=== PATIENT | female | born 1930 | race Caucasian/White ===

== ENCOUNTER 2016-03-19 12:54 | Emergency (ER) | payer OTHER ==
[~2016-03-19] VITALS: Ht 167.6 cm; Wt 80.0 kg
[~2016-03-19 12:54] MED LIST: BETAPACE; WARF2TAB PO; WARF5INJ; cozaar; synthroid; tiazac
[2016-03-19 13:14] VITALS: Ht 167.6 cm; Wt 80.0 kg
[2016-03-19] MEDS ORDERED: LORAZEPAM 2 MG/ML 1 ML VIAL IM STA (13:31)
[2016-03-19] MEDS ORDERED: HALOPERIDOL LACTATE 5 MG/ML 1 ML VIAL IM STA (13:31)
--- NOTE | 2016-03-19 13:59 | DIAGNOSTIC IMAGING REPORT ---
CHEST ONE VIEW PORTABLE CLINICAL HISTORY: Medical clearance. COMPARISON STUDY: Chest radiograph June 29, 2012. 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 Moderate cardiomegaly is similar to prior exam. There is no pneumothorax. There may be trace bilateral pleural effusions. There is pulmonary vascular congestion with possible mild pulmonary edema. There is hazy right lower lung opacity. IMPRESSION: 1. Pulmonary vascular congestion with suspected mild pulmonary edema. 2. Hazy right lower lung opacity which could reflect atelectasis or consolidation. Radiographic follow up is recommended. 3. Moderate cardiomegaly, similar to prior exam. Electronically signed by: Yevgeniy Maynard M.D. 03/19/2016 1:57 PM
[2016-03-19 14:10] LABS: MANUAL MICROSCOPIC REQUIRED? NO; REVIEW REQ? NO; URINE APPEARANCE CLOUDY (CLEAR); URINE BILIRUBIN NEG (NEG); URINE COLOR YELLOW; URINE NITRITE POS (NEG); URINE PH 7.5 (4.5-7.5); URINE SPECIFIC GRAVITY 1.004 (1.000-1.030); UROBILINOGEN NEG (NEG)
[2016-03-19 14:24] LABS: BENZODIAZEPINE, URINE NEG (NEG); COCAINE,URINE NEG (NEG); PHENCYCLIDINE, URINE NEG (NEG)
[2016-03-19 14:25] LABS: BASO % 0.2 %; BASO ABS # 0.01 K/uL (0-0.2); COMPLETE YES; HEMATOCRIT 41.8 % (37-47); IG% 0.2 %; LYMPH % 18.6 %; LYMPH ABS # 1.12 K/uL (1.2-3.4); MEAN CELL VOLUME 98.6 fL (80-100); MEAN CORPUSCULAR HGB CONC 33.5 g/dl (32-36); MEAN PLATELET VOLUME 10.1 fL (7.4-10.4); MONO % 11.3 %; NEUT % 68.7 %; PLATELET COUNT 264 K/uL (130-400); RED BLOOD COUNT 4.24 M/uL (4.2-5.4); WHITE BLOOD COUNT 6.03 K/uL (4.8-10.8)
--- NOTE | 2016-03-19 14:33 | DIAGNOSTIC IMAGING REPORT ---
HEAD CT NONCONTRAST CT DOSE: 614.27 mGy.cm HISTORY: agitation TECHNIQUE: Multiaxial CT images of the head were performed without the use of intravenous contrast. Automated exposure control was utilized for this study. Comparison: None. Findings: Retention cysts within the maxillary sinuses. The mastoid air cells are clear. The calvarium and skull base are intact. There is no mass, hematoma, midline shift, acute infarct. White matter hypodensity is nonspecific but suggestive of microvascular ischemic change. The ventricles and sulci demonstrate mild age-related involutional changes. Impression: No acute intracranial abnormality. Atrophy and microvascular ischemic changes. Electronically signed by: Kun Barajas M.D. 03/19/2016 2:31 PM
[2016-03-19 14:45] LABS: CALCIUM 9.2 mg/dl (8.5-10.1); CREATININE 1.1 mg/dl (0.60-1.20); POTASSIUM 3.6 mmol/L (3.5-5.1)
[2016-03-19 15:10] LABS: PARTIAL THROMBOPLASTIN RATIO 1.3; PROTHROMBIN TIME (PATIENT) 21.9 SECONDS (9.0-12.0)
--- NOTE | 2016-03-19 15:12 | EMERGENCY ROOM VISIT NOTE ---
History Report prepared by Fuad: Mariana Lindsay Under the Supervision of: Dr. Rich Crabtree D.O. First contact with patient: 13:22 Chief Complaint: MENTAL HEALTH EVALUATION Stated Complaint: 302 History of Present Illness The patient is an 85 year old female who presents to the Emergency Room for a mental health evaluation as she expressed suicidal and homicidal ideations to the police earlier today. Per nephghassan (ANNIE), when he went to pick her up from her apartment this morning, she did not seem to be acting like herself today but she told him that she did not sleep well because she just moved in to a new apartment. During her appointment today with a new PCP, patient got into an argument with the provider about how she does not want to take any of her medications any more because she believes that all doctors are crooks. After the appointment, nephew was driving the patient when she became argumentative with him and told him that "he just wanted him for her money". The patient then jumped out of the car and refused to get back into her nephew's car. The patient then called a cab for her, but when he arrived she started threatening them both, saying that she was going to kill them. She also broke the cabin service agent 's radio and was combative toward his car. Police was then called to pick the patient up, but when she told them that she didn't want to hurt herself or anyone else. However, as police were driving her back to her house, she stated that she was "tired of living, and she wants to ". She also stated that she was "tired of taking pills, and is going to save them all up and take them all at once to kill herself". Additionally, she said that she "should have killed the cabin service agent when she had the chance", so the police brought her to the ED for further evaluation. Anne states that staff from the [facility] that she lives at have found pills in her room that she has not been swallowing. She appears to be saving them and hiding them in her bed. Police has filled out a 302 petition. Source of History: family Onset: today Position: head Quality: other (mental health eval) Timing: other (current) Modifying Factors (Worsening): other (not taking medications) Review of Systems See HPI for pertinent positives & negatives. A total of 10 systems reviewed and were otherwise negative. Past Medical & Surgical Medical Problems: (1) Atrial fibrillation (2) Dementia (3) Hoarding behavior Social History Smoking Status: Never Smoker Marital Status: other (personal intermediate) Housing Status: unknown Occupation Status: retired Current/Historical Medications Scheduled Alprazolam (Xanax), 0.25 MG PO BID Aspirin (Aspirin), 1 TAB PO DAILY Ferrous Gluconate (Fergon), 1 TAB PO DAILY Folic Uxtg-Jvqjdjyqtu-Cjxnutte (Folbic), 1 TAB PO DAILY Furosemide (Lasix), 20 MG PO DAILY Lisinopril (Prinivil), 10 MG PO DAILY Metoprolol Succinate (Toprol Xl), 12.5 MG PO DAILY Multiple Vitamins W/ Minerals (Multivitamin Adults 50+), 1 TAB PO DAILY Polyethylene Glycol 3350 (Miralax), 17 GM PO DAILY Warfarin Sod (Coumadin), 3 MG PO DAILY@1600 Scheduled PRN Acetaminophen (Apap), 650 MG PO Q4H PRN for Pain or Fever Allergies Coded Allergies: Penicillins (Verified Allergy, Unknown, THROAT SWELLS SHUT, 03/19/16) Physical Exam Vital Signs Date Time Temp Pulse Resp B/P Pulse Ox O2 Delivery O2 Flow Rate FiO2 03/19/16 19:46 36.8 68 14 168/90 94 03/19/16 17:59 68 14 168/90 94 Room Air 03/19/16 15:48 70 14 137/71 94 Room Air 03/19/16 14:37 74 12 150/82 98 03/19/16 13:14 36.8 88 16 126/78 99 Room Air Physical Exam GENERAL: Patient is awake, alert, very anxious appearing and combative at times. EYES: The conjunctivae are clear. The pupils are round and reactive. EARS, NOSE, MOUTH AND THROAT: The nose is without any evidence of any deformity. Mucous membranes are moist tongue is midline NECK: The neck is nontender and supple. RESPIRATORY: Normal respiratory effort is noted there is no evidence of wheezing rhonchi or rales CARDIOVASCULAR: Irregular rhythm noted to auscultation. No definite murmurs noted. GASTROINTESTINAL: The abdomen is soft. Bowel sounds are present in all quadrants. Abdomen is nontender MUSCULOSKELETAL/EXTREMITIES: There is no evidence of gross deformity full range of motion is noted in the hips and shoulders SKIN: There is no obvious evidence of any rash. There are no petechiae, pallor or cyanosis noted. NEUROLOGIC: Patient is awake alert and oriented x3 strength is symmetric. PSYCH: Affect appears animated. Currently denying any suicidal or homicidal ideation. Medical Decision & Procedures ER Provider Diagnostic Interpretation: X-ray results as stated below per interpretation by me and the radiologist. CT results as stated below per my review and radiologist interpretation. CHEST ONE VIEW PORTABLE CLINICAL HISTORY: Medical clearance. COMPARISON STUDY: Chest radiograph June 29, 2012. 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 Moderate cardiomegaly is similar to prior exam. There is no pneumothorax. There may be trace bilateral pleural effusions. There is pulmonary vascular congestion with possible mild pulmonary edema. There is hazy right lower lung opacity. IMPRESSION: 1. Pulmonary vascular congestion with suspected mild pulmonary edema. 2. Hazy right lower lung opacity which could reflect atelectasis or consolidation. Radiographic follow up is recommended. 3. Moderate cardiomegaly, similar to prior exam. Electronically signed by: Yevgeniy Maynard M.D. 03/19/2016 1:[address]AST CT DOSE: 614.27 mGy.cm HISTORY: agitation TECHNIQUE: Multiaxial CT images of the head were performed without the use of intravenous contrast. Automated exposure control was utilized for this study. Comparison: None. Findings: Retention cysts within the maxillary sinuses. The mastoid air cells are clear. The calvarium and skull base are intact. There is no mass, hematoma, midline shift, acute infarct. White matter hypodensity is nonspecific but suggestive of microvascular ischemic change. The ventricles and sulci demonstrate mild age-related involutional changes. Impression: No acute intracranial abnormality. Atrophy and microvascular ischemic changes. Electronically signed by: Kun Barajas M.D. 03/19/2016 2:31 PM Laboratory Results 03/19/16 13:51 Red Blood Count 4.24, Mean Corpuscular Volume 98.6, Mean Corpuscular Hemoglobin 33.0, Mean Corpuscular Hemoglobin Concent 33.5, Mean Platelet Volume 10.1, Neutrophils (%) (Auto) 68.7, Lymphocytes (%) (Auto) 18.6, Monocytes (%) (Auto) 11.3, Eosinophils (%) (Auto) 1.0, Basophils (%) (Auto) 0.2, Neutrophils # (Auto ) 4.15, Lymphocytes # (Auto) 1.12, Monocytes # (Auto) 0.68, Eosinophils # (Auto ) 0.06, Basophils # (Auto) 0.01 03/19/16 13:51 Test 03/19/16 13:36 03/19/16 13:51 03/19/16 14:41 Urine Color YELLOW Urine Appearance CLOUDY (CLEAR) Urine pH 7.5 (4.5-7.5) Urine Specific [place] 1.004 (1.000-1.030) Urine Protein NEG (NEG) Urine Glucose (UA) NEG (NEG) Urine Ketones NEG (NEG) Urine Occult Blood NEG (NEG) Urine Nitrite POS (NEG) Urine Bilirubin NEG (NEG) Urine Urobilinogen NEG (NEG) Urine Leukocyte Esterase TRACE (NEG) Urine WBC (Auto) 1-5 /hpf (0-5) Urine RBC (Auto) 0-4 /hpf (0-4) Urine Hyaline Casts (Auto) 1-5 /lpf (0-5) Urine Epithelial Cells (Auto) 10-20 /lpf (0-5) Urine Bacteria (Auto) NEG (NEG) Urine Opiates Screen NEG (NEG) Urine Methadone, Qualitative NEG (NEG) Urine Barbiturates NEG (NEG) Urine Phencyclidine (PCP) Level NEG (NEG) Ur Amphetamine/Methamphetamine NEG (NEG) MDMA (Ecstasy) Screen NEG (NEG) Urine Benzodiazepines Screen NEG (NEG) Urine Cocaine Metabolite NEG (NEG) Urine Marijuana (THC) NEG (NEG) White Blood Count 6.03 K/uL (4.8-10.8) Red Blood Count 4.24 M/uL (4.2-5.4) Hemoglobin 14.0 g/dL (12.0-16.0) Hematocrit 41.8 % (37-47) Mean Corpuscular Volume 98.6 fL (80-100) Mean Corpuscular Hemoglobin 33.0 pg (25-34) Mean Corpuscular Hemoglobin Concent 33.5 g/dl (32-36) Platelet Count 264 K/uL (130-400) Mean Platelet Volume 10.1 fL (7.4-10.4) Neutrophils (%) (Auto) 68.7 % Lymphocytes (%) (Auto) 18.6 % Monocytes (%) (Auto) 11.3 % Eosinophils (%) (Auto) 1.0 % Basophils (%) (Auto) 0.2 % Neutrophils # (Auto) 4.15 K/uL (1.4-6.5) Lymphocytes # (Auto) 1.12 K/uL (1.2-3.4) Monocytes # (Auto) 0.68 K/uL (0.11-0.59) Eosinophils # (Auto) 0.06 K/uL (0-0.5) Basophils # (Auto) 0.01 K/uL (0-0.2) RDW Standard Deviation 59.5 fL (36.4-46.3) RDW Coefficient of Variation 16.6 % (11.5-14.5) Immature Granulocyte % (Auto) 0.2 % Immature Granulocyte # (Auto) 0.01 K/uL (0.00-0.02) Anion Gap 9.0 mmol/L (3-11) Est Creatinine Clear Calc Drug Dose 39.9 ml/min Estimated GFR () 53.0 Estimated GFR (Non- 45.7 BUN/Creatinine Ratio 15.0 (10-20) Calcium Level 9.2 mg/dl (8.5-10.1) Total Bilirubin 1.1 mg/dl (0.2-1) Direct Bilirubin 0.3 mg/dl (0-0.2) Aspartate Amino Transf (AST/SGOT) 64 U/L (15-37) Alanine Aminotransferase (ALT/SGPT) 93 U/L (12-78) Alkaline Phosphatase 77 U/L (45-117) Troponin I 0.019 ng/ml (0-0.045) Total Protein 8.3 gm/dl (6.4-8.2) Albumin 4.2 gm/dl (3.4-5.0) Globulin 4.1 gm/dl (2.5-4.0) Albumin/Globulin Ratio 1.0 (0.9-2) Thyroid Stimulating Hormone (TSH) 15.900 uIu/ml (0.300-4.500) Free Thyroxine 0.91 ng/dl (0.80-1.60) Ethyl Alcohol mg/dL < 3.0 mg/dl (0-3) Prothrombin Time 21.9 SECONDS (9.0-12.0) Prothromb Time International Ratio 2.0 (0.9-1.1) Activated Partial Thromboplast Time 34.6 SECONDS (21.0-31.0) Partial Thromboplastin Ratio 1.3 Laboratory results per my review. Medications Administered Medications (Trade) Dose Ordered Sig/Juan Manuel Route Start Time Stop Time Status Last Admin Dose Admin Haloperidol Lactate (Haldol Inj) 5 mg NOW STAT IM 03/19/16 13:31 03/19/16 13:33 DC 03/19/16 13:48 5 MG Lorazepam (Ativan Inj) 1 mg NOW STAT IM 03/19/16 13:31 03/19/16 13:33 DC 03/19/16 13:48 1 MG Lorazepam (Ativan Inj) 1 mg Q6H PRN IM 03/19/16 15:45 03/19/16 20:09 DC 03/19/16 16:19 1 MG ECG Indication: altered mental status Rate (beats per minute): 76 Rhythm: other (ventricularly paced) Findings: PVC Comparison ECG Date: no prior available ED Course 1320: The patient was evaluated in room A7. A complete history and physical examination were performed. 1331: Ativan 1 mg IM and Haldol 5 mg IM were ordered. 1500: Upon reevaluation, the patient was doing well and was resting more comfortably. Case management has spoken with her and her nephew (POA) about possible treatment options. 1515: Patient is medically clear. Bed search is underway. 1530: Patient was signed out to Dr. Tovar at change of shift. Medical Decision Differential diagnosis: Etiologies such as mood disorder, infection, hypoglycemia, electrolyte abnormalities, cardiac sources, intracerebral event, toxicologic, neurologic, as well as others were entertained. Nursing notes reviewed. Additional history is obtained from the police officers. Additional history is obtained from the patient's nephew. The patient is an 85-year-old female who is had progressively worsening dementia and is had episodes of violent behavior and recently. The patient arrived at the emergency department with police. She is had problems with declining health and was having depression symptoms. She's been making threats of wanting to herself by taking her pills all at one time to overdose. The patient was treated with Haldol and Ativan in the emergency department. Her symptoms improved significantly. She was agreeable to evaluation at that time. A 302 petition was filled out. The patient is medically cleared in the emergency department. She was reevaluated multiple times. I discussed the patient's laboratory radiographic studies with her and her nephew. The patient was evaluated by the emergency Department mental health director case management. The patient was reevaluated and was feeling much better. She did have a slight elevation in her liver function studies but these may warrant rechecking in the future. The patient was signed out to Dr. Tovar at change of shift. At this point bed search is underway and placement is pending. I do feel the patient would be a good candidate for inpatient psychiatric treatment and possible medication changes. Impression Primary Impression: Aggressive behavior Additional Impressions: Depression, Suicidal ideation Scribe Attestation The scribe's documentation has been prepared under my direction and personally reviewed by me in its entirety. I confirm that the note above accurately reflects all work, treatment, procedures, and medical decision making performed by me. Departure Information Dispostion Still a Patient
[2016-03-19 15:26] LABS: THYROID STIMULATING HORMONE 15.9 uIu/ml (0.300-4.500)
[2016-03-19] MEDS ORDERED: LORAZEPAM 2 MG/ML 1 ML VIAL IM PRN (15:45)
[2016-03-19] MEDS ORDERED: METO-478 PO (17:29)
[2016-03-19] MEDS ORDERED: FOLITAB21 PO (17:29)
[2016-03-19] MEDS ORDERED: LISI10TA PO (17:29)
[2016-03-19] MEDS ORDERED: FERR1TAB PO (17:29)
[2016-03-19] MEDS ORDERED: ASPI325T45 PO (17:29)
[2016-03-19] MEDS ORDERED: MULT-916 PO (17:29)
[2016-03-19] MEDS ORDERED: CMD3 PO (17:29)
[2016-03-19] MEDS ORDERED: ALPR0.25 PO (17:29)
[2016-03-19] MEDS ORDERED: POLY335019 PO (17:29)
[2016-03-19] MEDS ORDERED: FURO20TA PO (17:29)
[2016-03-19] MEDS ORDERED: ACET325T82 PO (17:29)
[2016-03-19 19:46] VITALS: BP 168/90; PULSE 68; TEMP 36.8; O2SAT 94
--- NOTE | 2016-03-19 21:00 | EMERGENCY ROOM VISIT NOTE ---
ED Visit Note First contact with patient: 16:51 This patient was seen and medically cleared by Dr. Crabtree. The patient was signed out to me pending mental health placement under a 302 warrant. The patient was accepted to [facility] and transferred securely.
== END 2016-03-19 19:46 ==
LOC: C.EDB 12:55 → C.EDA 19:46
DX: F91.9 Conduct disorder, unspecified (principal); R45.851 Suicidal ideations; F32.9 Major depressive disorder, single episode, unspecified; I48.91 Unspecified atrial fibrillation; F03.91 Unspecified dementia, unspecified severity, with behavioral disturbance; Z79.01 Long term (current) use of anticoagulants; Z79.82 Long term (current) use of aspirin; Z79.899 Other long term (current) drug therapy

== ENCOUNTER → 2017-07-23 | Outpatient (CLI) | payer OTHER ==
[~2017-07-23] MED LIST changes: +ACET325T82 PO; +ALPR0.25 PO; +ASPECOTC PO; -BETAPACE; +CMD3 PO; +FERR1TAB PO; +FOLITAB21 PO; +FURO20TA PO; +LISI10TA PO; +METO-478 PO; +MULT-916 PO; +POLY335019 PO; -WARF2TAB PO; -WARF5INJ; -cozaar; -synthroid; -tiazac
[2017-07-23 10:03] LABS: INR 2.1 (0.9-1.1)
== END ==
LOC: C.LABUPNIT 09:30
PROVIDERS: ATTEND Nurse Practitioner Family
DX: I48.91 Unspecified atrial fibrillation (principal)

== ENCOUNTER → 2017-07-24 | Outpatient (CLI) | payer OTHER ==
[2017-07-24 08:55] LABS: BASO % 0.2 %; BASO ABS # 0.01 K/uL (0-0.2); EOS % 3.6 %; EOS ABS # 0.19 K/uL (0-0.5); HEMATOCRIT 38.8 % (37-47); IG# 0.01 K/uL (0.00-0.02); LYMPH % 25.3 %; LYMPH ABS # 1.34 K/uL (1.2-3.4); MEAN CELL VOLUME 94.2 fL (80-100); MEAN CORPUSCULAR HEMOGLOBIN 31.6 pg (25-34); MEAN CORPUSCULAR HGB CONC 33.5 g/dl (32-36); MEAN PLATELET VOLUME 11.7 fL (7.4-10.4); MONO % 19.5 %; MONO ABS # 1.03 K/uL (0.11-0.59); NEUT % 51.2 %; NEUT ABS # 2.71 K/uL (1.4-6.5); PLATELET COUNT 174 K/uL (130-400); RED CELL DISTRIBUTION WIDTH CV 15.5 % (11.5-14.5); RED CELL DISTRIBUTION WIDTH SD 52.6 fL (36.4-46.3); WHITE BLOOD COUNT 5.29 K/uL (4.8-10.8)
[2017-07-24 09:05] LABS: BLOOD UREA NITROGEN 46 mg/dl (7-18); CALCIUM 8.8 mg/dl (8.5-10.1); CARBON DIOXIDE 23 mmol/L (21-32); CREATININE 1.38 mg/dl (0.60-1.20); GLUCOSE 83 mg/dl (70-99); POTASSIUM 4.1 mmol/L (3.5-5.1); SODIUM 140 mmol/L (136-145)
== END ==
LOC: C.LABUPNIT 07:58
PROVIDERS: ATTEND Nurse Practitioner Family
DX: R41.0 Disorientation, unspecified (principal); D50.9 Iron deficiency anemia, unspecified; N18.3 Chronic kidney disease, stage 3 (moderate)

== ENCOUNTER → 2017-07-25 | Outpatient (CLI) | payer OTHER ==
[2017-07-25 10:14] LABS: INR 1.5 (0.9-1.1)
== END ==
LOC: C.LABUPNIT 11:37
PROVIDERS: ATTEND Nurse Practitioner Family
DX: I48.91 Unspecified atrial fibrillation (principal)

== ENCOUNTER → 2017-07-27 | Outpatient (CLI) | payer OTHER ==
[2017-07-27 10:05] LABS: BLOOD UREA NITROGEN 54 mg/dl (7-18); CALCIUM 9.4 mg/dl (8.5-10.1); CARBON DIOXIDE 25 mmol/L (21-32); CREATININE 1.56 mg/dl (0.60-1.20); GLUCOSE 80 mg/dl (70-99); POTASSIUM 4.7 mmol/L (3.5-5.1); SODIUM 138 mmol/L (136-145)
== END ==
LOC: C.LABUPNIT 09:25
PROVIDERS: ATTEND Nurse Practitioner Family
DX: N18.3 Chronic kidney disease, stage 3 (moderate) (principal); I48.91 Unspecified atrial fibrillation

== ENCOUNTER → 2017-07-28 | Outpatient (CLI) | payer OTHER ==
[2017-07-28 09:40] LABS: INR 1.3 (0.9-1.1)
== END | disposition home or self-care (01) ==
LOC: C.LABUPNIT 09:10
PROVIDERS: ATTEND Nurse Practitioner Family
DX: I48.91 Unspecified atrial fibrillation (principal)

== ENCOUNTER → 2017-07-30 | Outpatient (CLI) | payer OTHER ==
[2017-07-30 08:42] LABS: INR 1.6 (0.9-1.1)
[2017-07-30 08:47] LABS: BLOOD UREA NITROGEN 48 mg/dl (7-18); CALCIUM 9.3 mg/dl (8.5-10.1); CARBON DIOXIDE 28 mmol/L (21-32); CREATININE 1.13 mg/dl (0.60-1.20); GLUCOSE 95 mg/dl (70-99); POTASSIUM 5.1 mmol/L (3.5-5.1); SODIUM 137 mmol/L (136-145)
== END ==
LOC: C.LABUPNIT 08:21
PROVIDERS: ATTEND Nurse Practitioner Family
DX: N18.3 Chronic kidney disease, stage 3 (moderate) (principal); I48.91 Unspecified atrial fibrillation

== ENCOUNTER → 2017-07-31 | Outpatient (CLI) | payer OTHER ==
--- NOTE | 2017-08-04 07:31 | CODING QUERY NO DIAGNOSIS ---
cqTREATMENT RENDERED WITHOUT A DIAGNOSIS To promote full compliance with coding requirements relating to patient care, physician participation is requested in all cases of field evidence technician uncertainty. Please assist us with providing a diagnosis/symptom for the test(s) below: A diagnosis/symptom was not documented on your Order. A valid diagnosis/symptom is required to bill all insurances. Please remember that we are unable to code a diagnosis of rule out, probable, possible, questionable, or suspected. Tests that require a diagnosis: DOS 07/31/17 URINE CULTURE TEST Provider Signature: Date: Thank you Ellyn Amato Health Information Management Once completed, please kindly fax back to [phone] For questions please call [phone]
== END | disposition home or self-care (01) ==
LOC: C.LABUPNIT 14:17
PROVIDERS: ATTEND Nurse Practitioner Family
DX: N39.0 Urinary tract infection, site not specified (principal)

== ENCOUNTER → 2017-08-01 | Outpatient (CLI) | payer OTHER | LOC: C.LABUPNIT 09:15 | PROVIDERS: ATTEND Nurse Practitioner Family | DX: I48.91 Unspecified atrial fibrillation (principal) ==

== ENCOUNTER → 2017-08-03 | Outpatient (CLI) | payer OTHER ==
[2017-08-03 08:54] LABS: BLOOD UREA NITROGEN 39 mg/dl (7-18); CALCIUM 8.6 mg/dl (8.5-10.1); CARBON DIOXIDE 26 mmol/L (21-32); GLUCOSE 70 mg/dl (70-99); POTASSIUM 4.4 mmol/L (3.5-5.1); SODIUM 140 mmol/L (136-145)
[2017-08-03 10:30] LABS: HEMOGLOBIN A1C 6.3 % (4.5-5.6)
== END ==
LOC: C.LABUPNIT 08:03
PROVIDERS: ATTEND Nurse Practitioner Family
DX: E11.69 Type 2 diabetes mellitus with other specified complication (principal); N18.3 Chronic kidney disease, stage 3 (moderate)

== ENCOUNTER → 2017-08-05 | Outpatient (CLI) | payer OTHER ==
[2017-08-05 09:11] LABS: BASO % 0.1 %; BASO ABS # 0.01 K/uL (0-0.2); EOS % 2.3 %; EOS ABS # 0.16 K/uL (0-0.5); HEMATOCRIT 35.2 % (37-47); HEMOGLOBIN 11.6 g/dL (12.0-16.0); IG# 0.01 K/uL (0.00-0.02); LYMPH % 15.2 %; LYMPH ABS # 1.07 K/uL (1.2-3.4); MEAN CELL VOLUME 98.1 fL (80-100); MEAN CORPUSCULAR HEMOGLOBIN 32.3 pg (25-34); MEAN PLATELET VOLUME 11.4 fL (7.4-10.4); MONO % 14.2 %; NEUT % 68.1 %; NEUT ABS # 4.77 K/uL (1.4-6.5); PLATELET COUNT 173 K/uL (130-400); RED CELL DISTRIBUTION WIDTH SD 58.1 fL (36.4-46.3); WHITE BLOOD COUNT 7.02 K/uL (4.8-10.8)
[2017-08-05 09:20] LABS: INR 1.5 (0.9-1.1)
[2017-08-05 09:21] LABS: BLOOD UREA NITROGEN 35 mg/dl (7-18); CALCIUM 9.2 mg/dl (8.5-10.1); CARBON DIOXIDE 29 mmol/L (21-32); CREATININE 1.19 mg/dl (0.60-1.20); GLUCOSE 69 mg/dl (70-99); POTASSIUM 4.5 mmol/L (3.5-5.1); SODIUM 139 mmol/L (136-145)
== END ==
LOC: C.LABUPNIT 08:48
PROVIDERS: ATTEND Nurse Practitioner Family
DX: N39.0 Urinary tract infection, site not specified (principal); I48.91 Unspecified atrial fibrillation